=== PATIENT | male | born 2000 | race African-American/Black ===

== ENCOUNTER 2022-01-24 08:11 | Emergency (ER) | payer OTHER ==
[2022-01-24] MEDS ORDERED: NS 0.9% w/ 20 MEQ KCL 1,000 ML ONE (08:16)
[2022-01-24] MEDS ORDERED: Morphine 4 MG/ML VIAL ONE (08:56)
[2022-01-24] MEDS ORDERED: Sodium Chloride 0.9% 1,000 ML BAG ONE (09:00)
== END 2022-01-24 09:17 | disposition short-term general hospital (02) ==
LOC: NAV ERS 08:11
DX: S68.624A Partial traumatic transphalangeal amputation of right ring finger, initial encounter (principal); S68.620A Partial traumatic transphalangeal amputation of right index finger, initial encounter; W45.8XXA Other foreign body or object entering through skin, initial encounter
CPT/HCPCS: 90471; 96365; 96375; 96376; J2270; J3480; J7050